=== PATIENT | male | born 1985 ===

== ENCOUNTER → 2021-07-07 | Outpatient (CLI) | payer SELFPAY ==
[2021-07-07 11:24] LABS: Hematocrit 47.3 % (37.0-53.0); Hemoglobin 16.8 g/dL (13.5-17.5); Mean Corpuscular HGB 30.1 pg (26.0-34.0); Mean Corpuscular HGB Conc 35.5 g/dL (31.5-36.5); Mean Corpuscular Volume 85 fL (80-100); Mean Platelet Volume 9.8 fL (9.1-12.4); Platelet Count 331 K/mm3 (150-400); RDW Coefficient Variation 11.3 % (11.7-14.2); RDW Standard Deviation 34.5 fL (35.1-46.3); Red Blood Cell Count 5.59 M/mm3 (4.30-5.90); White Blood Cell Count 7.13 K/mm3 (4.00-11.30)
[2021-07-07 13:12] LABS: Alanine Aminotransfer (ALT/SGP 31 U/L (12-78); Albumin, Blood 4.3 g/dL (3.4-5.0); Albumin/Globulin Ratio 1.5 (0.8-1.8); Alk Phos 83 U/L (40-126); Anion Gap 11 mmol/L (6-16); Aspartate Aminotrans (AST/SGOT 14 U/L (12-37); Bilirubin, Total 0.7 mg/dL (0.1-1.0); Blood Urea Nitrogen 11 mg/dL (8-24); Bun/Creatinine Ratio 10.9 (12.0-20.0); CHOL/HDL RATIO 3.5; CO2, Blood 28 mmol/L (21-32); Calcium, Blood 9.3 mg/dL (8.5-10.1); Chloride, Blood 102 mmol/L (98-108); Cholesterol 199 mg/dL (50-200); Creatinine, Blood 1.01 mg/dL (0.60-1.20); Globulin, Blood 2.9 g/dL (2.2-4.0); Glomerular Filtration Rate >60 (60-); Glucose, Blood 91 mg/dL (70-99); HDL Cholesterol 57 mg/dL (>39); LDL/HDL RATIO 2.2; Low Density Lipoprotein Chol 125 mg/dL (<110); Potassium, Blood 4.2 mmol/L (3.5-5.5); Sodium, Blood 141 mmol/L (136-145); Thyroid Stimulating Hormone 1.021 uIU/mL (0.360-4.800); Total Protein, Blood 7.2 g/dL (6.4-8.2); Triglycerides 83 mg/dL (30-140); Very Low Density Lipoprot Chol 16 mg/dL (6-28)
== END ==
LOC: LAB SHORT 11:17
PROVIDERS: Family Medicine
DX: E66.3 Overweight (principal)
CPT/HCPCS: 80053; 80061; 84443; 85027